=== PATIENT | female | born 1940 | race Caucasian/White ===

== ENCOUNTER → 2023-04-16 07:39 | Outpatient (REF) | payer OTHER, SELFPAY | LOC: RAD 07:39 | PROVIDERS: ATTENDING PHYSICIAN Internal Medicine | DX: G62.9 Polyneuropathy, unspecified (principal); E53.9 Vitamin B deficiency, unspecified; R20.0 Anesthesia of skin; Z91.81 History of falling; R26.89 Other abnormalities of gait and mobility; M48.061 Spinal stenosis, lumbar region without neurogenic claudication | CPT/HCPCS: 70450 ==

== ENCOUNTER → 2023-05-02 14:49 | Outpatient (REF) | payer OTHER, SELFPAY | LOC: PAVMRI 14:49 | PROVIDERS: ATTENDING PHYSICIAN Internal Medicine | DX: G62.9 Polyneuropathy, unspecified (principal); R26.89 Other abnormalities of gait and mobility; M48.061 Spinal stenosis, lumbar region without neurogenic claudication | CPT/HCPCS: 72148 ==

== ENCOUNTER → 2023-08-02 16:22 | Outpatient (REF) | payer OTHER, SELFPAY | LOC: RAD 16:22 | PROVIDERS: ATTENDING PHYSICIAN Internal Medicine | DX: R60.0 Localized edema (principal) | CPT/HCPCS: 93971 ==

== ENCOUNTER → 2023-08-26 06:41 | Outpatient (REF) | payer OTHER, SELFPAY | LOC: PAVMRI 06:41 | PROVIDERS: ATTENDING PHYSICIAN Pain Medicine Interventional Pain Medicine; FAMILY PHYSICIAN Internal Medicine | DX: M25.552 Pain in left hip (principal) | CPT/HCPCS: 73721 ==

== ENCOUNTER 2023-09-17 10:36 | Emergency (ER) | payer OTHER, SELFPAY ==
[2023-09-17] VITALS (8 sets, daily range): BP systolic 161–183; BP diastolic 65–85; PULSE 83; O2SAT 93; BMI 23.5
--- NOTE | 2023-09-17 10:52 | ED.GENMED ---
History of Present Illness
General
Chief Complaint: Back Pain
Source: patient
Exam Limitations: none
Time Seen by Provider: 09/17/23 10:42
History of Present Illness
History of Present Illness:
See MDM
Past History
Past History
ED Past Medical History: Asthma, HTN, Hypothyroidism and Other (Osteoarthritis)
ED Past Surgical History: Appendectomy and Cholecystectomy
Social History
Tobacco: Non-smoker
Alcohol: None
Drug: None
Living: alone
Employment: Retired
Family History
Family History: Diabetes
Phy Exam
Physical Exam
Physical Exam:
See MDM
Course
Orders/Labs/Results
Orders:
Orders
09/17/23 11:03
COVID-19 Antigen Urgent
Source: Nasal Swab
Complete Blood Count/With Diff Urgent
Comprehensive Metabolic Panel Urgent
09/17/23 12:00
Urinalysis Reflex To Culture Urgent
Date Specimen was Collected: 09/17/23
Time Specimen was Collected: 11:57
09/17/23 12:06
Case Management Consult ONCE
Case Management Consult: Discharge Planning
Physical Therapy Consult [Pt Eval And Treat] Urgent
Activity Level: Ambulate
Abnormal Lab Results
09/17/23 09/17/23
11:03 12:00
RBC 3.82 L 10^6/uL
(4.20-5.40)
Hgb 11.6 L g/dL
(12.0-16.0)
Hct 34.2 L %
(37.0-47.0)
RDW 14.6 H %
(11.5-14.5)
MPV 10.5 H fL
(7.4-10.4)
Absolute Lymphs (auto) 0.9 L 10^3/uL
(1.2-3.4)
Neutrophils % 81.0 H %
(42.2-75.2)
Lymphocytes % 11.7 L %
(20.5-51.1)
Glucose 102 H mg/dl
(70-99)
Total Bilirubin 1.7 H mg/dl
(0.2-1.3)
Urine Ketones 1+ A
(Negative)
09/17/23 11:03
09/17/23 11:03
Vital Signs
Initial and Last Documented VS:
Initial Vital Signs
Pulse Resp Pulse Ox
93 19 96
09/17/23 10:45 09/17/23 10:45 09/17/23 10:45
Last Documented Vital Signs
Temp Pulse Resp BP Pulse Ox
100 F 80 18 181/71 96
09/17/23 12:00 09/17/23 12:00 09/17/23 12:00 09/17/23 12:00 09/17/23 12:00
MDM/Problems Addressed
Differential Diagnosis Includes:
HPI and MDM Narrative:
82-year-old female presenting with back pain and left hip pain. Patient has been followed by spine was receiving injections in her hip and her spine. She states it is not helping and pain is getting worse despite the oxycodone being switched to
hydrocodone. On arrival, patient found to have low-grade fever. She denies urinary symptoms, cough or congestion. Will recheck temperature
On exam, she has no focal deficits in her legs
I did evaluate the MRI that she recently had which showed likely age degenerative changes such as labrum tear. She lives alone and is having trouble with her walkers. Will rule out any labral or infectious pathology as etiology of her weakness and
pain before having PT evaluate
Physical exam
General: Well appearing and non-toxic
HEENT: protecting airway
Neck: appears supple
CV: No evidence of cyanosis
Resp: No accessory muscle use
Abd: Non-distended. Soft and nontender
Extremities: No deformities. Distal legs neurovascular intact.. Muscle strength intact
Back: No rash or erythema noted to lumbar region
Neuro: alert
Psych: Normal affect
Skin: Intact
Problems Addressed including Acute and Chronic Conditions affecting care:
1. Back and hip pain
Acuity: Chronic
Prognosis: stable
Details: I did evaluate the MRI. This is likely a nonsurgical issue. Will have PT evaluate
Updates
PT and case management evaluated patient. Patient will be referred to [facility] and patient is very comfortable with plan. Patient is able to ambulate with assistance. Although patient has low-grade temperature, she is not
technically febrile and white blood cell count within normal limits. Abdomen remains soft and nontender and urine negative for infection. COVID-negative. Discussed return precautions
Differential Diagnosis (but not limited to): Back pain, hip strain, UTI
Testing considered:
Drug therapy (if applicable): OTC meds, please see d/c instruction regarding Rx drugs
Amount and/or Complexity of Data Reviewed
Clinical info obtained from: Patient
External data reviewed: Recent lumbar and hip MRI show degenerative changes
Labs I independently reviewed (but not limited to): White blood cell count normal
Radiology: N/A
Pulse Ox: not hypoxic
EKG independently reviewed: N/A
Photographic Intelligence Officer: N/A
Critical Care: N/A
Risk of Complication:
Social Determinants of health: Good social support
Discussed with other providers: N/A
Escalation of Care includes Admit/Obs: After being observed in the Emergency Department, pt stable for discharge.
Occasional wrong word or 'sound a like' substitutions may have occurred due to the inherent limitations of voice recognition software. Read the chart carefully and recognize, using context, where substitutions have occurred.
*Critical Care Note
Total Time (30-74mins, 75-104mins- exclusive of procedures): Not Applicable
ED Attending Note
-
Portions of this chart may have been created with voice recognition software.� Occasional wrong word or��sound alike� substitutions may have occurred due to the inherent limitations of voice recognition software.
Discharge Plan
Departure
Patient Disposition: Home (Routine Discharge)
Date of Disposition: 09/17/23
Time of Disposition: 14:02
Patient with high blood pressure during this ER visit?: Yes
Discharge Problem:
Back pain
Prescriptions:
No Action
prazosin 5 MG capsule
5 mg PO BID
mometasone-formoterol [Dulera] 1 PUFF HFA aerosol inhaler
2 puff inhalation DAILY
cholecalciferol (vitamin D3) [Vitamin D3] 1,000 UNIT capsule
2,000 unit PO BID
levothyroxine 100 MCG tablet
100 mcg PO DAILY
calcium carbonate 500 MG tablet
500 mg PO NOON
cyanocobalamin (vitamin B-12) 1,000 MCG tablet
5,000 mcg PO DAILY
potassium chloride [Klor-Con 10] 10 MEQ tablet extended release
20 meq PO TID
diltiazem HCl 120 MG capsule,extended release 24hr
120 mg PO DAILY
mupirocin 1 APPLIC ointment
1 applic intranasal BID Qty: 1 0RF
Patient Comments:
started treatment on saturday10/04/19 and was taking BID, last took 10/07/19 at 0530
sennosides [senna] 1 TABLET tablet
2 tab PO BID 0RF
acetaminophen 325 MG tablet
650 mg PO Q4HWA 0RF
tramadol 50 MG tablet
50 mg PO TID Qty: 21 0RF
Rx Instructions:
dx joint
ongoing therapy
magnesium hydroxide 30 ML suspension
30 ml PO DAILYPRN PRN (Reason: constipation) 0RF
docusate sodium 100 MG capsule
100 mg PO BID 0RF
hydromorphone 2 MG tablet
2 mg PO Q4HPRN PRN (Reason: modertae-severe pain) Qty: 35 0RF
Rx Instructions:
ongoing therapy
Dx TKA-joint
triamterene-hydrochlorothiazid 1 CAPSULE capsule
1 cap PO DAILY Qty: 0 0RF
Patient Comments:
dose: 27.5mg
Rx Instructions:
hold if systolic blood pressure <125
warfarin [Jantoven] 2 MG tablet
4 mg PO TONIGHT AT 1800 Qty: 50 0RF
Rx Instructions:
2 tabs tonight 10/07, then as advised after INR saturday
Referrals:
Gregg Funk MD [Family Provider] -
Activity Restrictions/Additional Instructions:
Please return for any worsening symptoms.
You may return at any time if you have further concerns.
Please follow up with your doctor at the first available appointment, preferably this week.
Thank you for choosing [facility].
Interventions
Interventions:
*Risk Screen - Suicide Last Done: 09/17/23 10:47
*General Assessment Last Done: 09/17/23 10:47
*Neglect/Abuse Screening Last Done: 09/17/23 10:47
*ED COVID-19 Vaccine History Last Done: 09/17/23 10:47
ED-Musculoskeletal Assessment Last Done: 09/17/23 12:21
Discharge Date and Time
Print Language: FRENCH
[2023-09-17 11:19] LABS: % Basophils 0.1 % (0-2); % Immature Granulocytes 0.4 % (0-0.5); % Lymphocytes 11.7 % (20.5-51.1); % Monocytes 6.8 % (1.7-9.3); Absolute Lymphocytes 0.9 10^3/uL (1.2-3.4); Absolute Monocytes 0.5 10^3/uL (0.1-0.6); Absolute Neutrophils 5.9 10^3/uL (1.4-6.5); Hematocrit 34.2 % (37.0-47.0); Hemoglobin 11.6 g/dL (12.0-16.0); Mean Corp Hgb Conc. 33.9 g/dL (33.0-37.0); Mean Corpuscular Hgb 30.4 pg (27.0-31.0); Mean Corpuscular Volume 89.5 fL (81.0-99.0); Mean Platelet Volume 10.5 fL (7.4-10.4); Nucleated Red Blood Cells % 0 %; Platelet Count 190 10^3/uL (130-400); Red Blood Cell Count 3.82 10^6/uL (4.20-5.40); Red Cell Dist. Width 14.6 % (11.5-14.5); White Blood Cell Count 7.3 10^3/uL (4.8-10.8)
[2023-09-17 11:26] LABS: ALT (SGPT) 12 U/L (0-35); AST (SGOT) 24 U/L (14-36); Alkaline Phosphatase 66 U/L (38-126); Blood Urea Nitrogen 14 mg/dl (7-17); Calcium 9.6 mg/dl (8.4-10.2); Carbon Dioxide 29 mmol/L (22-30); Chloride 100 mmol/L (98-107); Estimated Creatinine Clearance 69 ml/min; Glucose 102 mg/dl (70-99); Potassium 3.5 mmol/L (3.5-5.1); Sodium 136 mmol/L (135-145); Total Bilirubin 1.7 mg/dl (0.2-1.3); Total Protein 6.7 g/dl (6.3-8.2); eGFR > 60.00
[2023-09-17 11:30] LABS: COVID-19 Antigen Negative (Negative)
[2023-09-17 12:21] LABS: Urine Albumin Negative (Neg - Trace); Urine Bilirubin Negative (Negative); Urine Character Clear (Clear); Urine Color Yellow; Urine Glucose Negative (Negative); Urine Ketone 1+ (Negative); Urine Leukocyte Negative (Negative); Urine Nitrite Negative (Negative); Urine Occult Blood Negative (Negative); Urine Urobilinogen Negative (Neg - 1+)
--- NOTE | 2023-09-17 13:49 | CM ---
Addendum entered by Gracy Mccormack 09/17/23 14:16:
[facility] accepted referral. Patient was in agreement with having [facility] as her home health care agency.
Original Note:
CM reviewed chart. CM introduced self and role to patient. CM discussed PT's recommendations. She would like to go home with PT/OT/SN.
Referrals placed in [facility]. Covering bedside RN and attending physician notified of above.
Patient confirmed one of her tenants will provide transportation once she is discharged. She is calling them now.
--- NOTE | 2023-09-17 14:28 | VNURNOTE ---
Received [facility] request from VIVIENNE Dubose. Chart reviewed. Home Health Liaison met with patient at bedside to discuss [facility] nurse/therapy, visits, schedule and homebound status. Patient is agreeable and understands that visits at home will be 1-2 x per
week to assess and teach medical management. [facility] brochure provided with contact information. Patient is aware that [facility] will contact them for start of care in a few days after discharge from . [facility] referral completed in [facility] by VIVIENNE.
== END 2023-09-17 14:45 | disposition home or self-care (01) ==
LOC: EMR 10:36
PROVIDERS: EMERGENCY PHYSICIAN Student in an Organized Health Care Education/Training Program; FAMILY PHYSICIAN Internal Medicine
DX: M54.9 Dorsalgia, unspecified (principal); I10 Essential (primary) hypertension
CPT/HCPCS: 99283; 80053; 81003; 85025; 87811

== ENCOUNTER 2024-01-14 11:52 | Outpatient (RCR) | payer OTHER, SELFPAY | END 2024-01-14 23:59 | disposition home or self-care (01) | LOC: RPT 11:52 | PROVIDERS: ATTENDING PHYSICIAN Physician Assistant Surgical; FAMILY PHYSICIAN Internal Medicine | DX: M48.062 Spinal stenosis, lumbar region with neurogenic claudication (principal); M43.16 Spondylolisthesis, lumbar region; Z73.6 Limitation of activities due to disability | CPT/HCPCS: 97010; 97110; 97162 ==

== ENCOUNTER 2024-02-25 09:54 | Outpatient (RCR) | payer OTHER, SELFPAY | END 2024-02-25 23:59 | disposition home or self-care (01) | LOC: RPT 09:54 | PROVIDERS: ATTENDING PHYSICIAN Physician Assistant Surgical; FAMILY PHYSICIAN Internal Medicine | DX: M48.062 Spinal stenosis, lumbar region with neurogenic claudication (principal); M43.16 Spondylolisthesis, lumbar region; Z73.6 Limitation of activities due to disability | CPT/HCPCS: 97010; 97110 ==

== ENCOUNTER 2024-03-26 09:57 | Outpatient (RCR) | payer OTHER, SELFPAY | END 2024-03-26 23:59 | disposition home or self-care (01) | LOC: RPT 09:57 | PROVIDERS: ATTENDING PHYSICIAN Physician Assistant Surgical; FAMILY PHYSICIAN Internal Medicine | DX: M48.062 Spinal stenosis, lumbar region with neurogenic claudication (principal); M43.16 Spondylolisthesis, lumbar region; Z73.6 Limitation of activities due to disability | CPT/HCPCS: 97010; 97110 ==

== ENCOUNTER 2024-04-23 12:58 | Outpatient (RCR) | payer OTHER, SELFPAY | END 2024-04-23 23:59 | disposition home or self-care (01) | LOC: RPT 12:58 | PROVIDERS: ATTENDING PHYSICIAN Physician Assistant Surgical; FAMILY PHYSICIAN Internal Medicine | DX: M48.062 Spinal stenosis, lumbar region with neurogenic claudication (principal); M43.16 Spondylolisthesis, lumbar region; Z73.6 Limitation of activities due to disability | CPT/HCPCS: 97010; 97110 ==

== ENCOUNTER 2024-05-21 12:50 | Outpatient (RCR) | payer OTHER, SELFPAY | END 2024-05-21 23:59 | disposition home or self-care (01) | LOC: RPT 12:50 | PROVIDERS: ATTENDING PHYSICIAN Physician Assistant Surgical; FAMILY PHYSICIAN Internal Medicine | DX: M48.062 Spinal stenosis, lumbar region with neurogenic claudication (principal); M43.16 Spondylolisthesis, lumbar region; Z73.6 Limitation of activities due to disability; M62.81 Muscle weakness (generalized); R26.2 Difficulty in walking, not elsewhere classified; R26.89 Other abnormalities of gait and mobility | CPT/HCPCS: 97010; 97110 ==

== ENCOUNTER 2024-06-07 23:43 | Emergency (ER) | payer OTHER, SELFPAY ==
[2024-06-07 23:56] VITALS: BP 220/91
--- NOTE | 2024-06-08 00:12 | ED.GENMED ---
History of Present Illness
General
Chief Complaint: Fall
Source: patient
Exam Limitations: none
Time Seen by Provider: 06/08/24 00:08
Nursing documentation reviewed up to this point in time: agreed with
History of Present Illness
History of Present Illness:
This is a 83-year-old female with a past medical history of hypertension, asthma, hypothyroidism, presents to the emergency department today with concerns of right knee pain following a fall. Patient reports that she lives alone and usually
ambulates well with a walker and a cane. Patient states that she was ambulating without her walker at home because she states that she knows her home well and did not feel that the walker was necessary at that time but states that she always use an
assistive device when leaving her home. Patient reports that she was sitting watching TV when she went to go stand up and fell onto her right side, injuring her right knee and her right ankle. She was unable to get up on her own and so she
notified her tenants who came to help her and called 911. Patient did not take anything for pain. Patient did not try ambulating since the fall. She denies any dizziness prior to the fall, any loss of consciousness, any syncope. She did not hit
her head when she fell, she denies any neck pain. Patient states that her bedroom is located on the first floor and she does not have to climb stairs at home.
Past History
Past History
ED Past Medical History: Asthma, HTN, Hypothyroidism and Other (Osteoarthritis)
ED Past Surgical History: Appendectomy and Cholecystectomy
Social History
Tobacco: Non-smoker
Alcohol: None
Drug: None
Living: alone
Employment: Retired
Family History
Family History: Diabetes
Review of Systems
Review of Systems
All Other Systems: ROS reviewed and negative except as documented in HPI and ROS
Phy Exam
Physical Exam
Physical Exam:
General: Patient is well appearing and in no acute distress; non-toxic
Skin: Warm and dry, scattered ecchymosis noted to right knee
Head: Normocephalic, atraumatic
Eyes: Sclera non-icteric. EOMs intact.
Cardiac: Regular rate and rhythm, no murmurs
Peripheral Vascular: No lower extremity swelling or edema
Pulm: Normal respiratory effort
Musculoskeletal: Full range of motion of right lower extremity, no pain with internal/external rotation of the right hip, no palpable tenderness palpation. No pain with flexion extension of the right knee, no suprapatellar effusion. Right ankle
joint stable with negative anterior drawer test, some tenderness with varus stress.
Neuro: CN II-XII intact, no focal neurologic deficits.
Psychiatric: Appropriate mood and affect.
Course
Orders/Labs/Results
Orders:
Orders
06/07/24 23:54
ECG [Electrocardiogram (*1)] Urgent
Reason for Study: Hypertension, Benign
Cardiology Consult: Anselmo Hagen
06/08/24 00:31
Oxycodone/Acetaminophen [Percocet 5/325] 1 tablet PO NOW STA
06/08/24 00:32
CR Ankle - Right 2 Views Urgent
Comment:
Reason For Exam: right lateral ankle pain
CR Knee - Right 1 Or 2 Views Urgent
Comment:
Reason For Exam: right knee pain
CR Sacrum/coccyx Min 2 View Urgent
Comment:
Reason For Exam: coccyx pain
06/08/24 00:33
CT Head W/o Iv Contrast Urgent
Comment:
Reason For Exam: mechanical fall
06/07/24 23:56
06/07/24 23:56
Vital Signs
Blood pressure: 179/97
Initial and Last Documented VS:
Initial Vital Signs
Temp Pulse Resp BP Pulse Ox
98.7 F 77 20 220/91 98
06/07/24 23:56 06/07/24 23:56 06/07/24 23:56 06/07/24 23:56 06/07/24 23:56
Last Documented Vital Signs
Temp Pulse Resp BP Pulse Ox
98.7 F 70 20 160/80 98
06/07/24 23:56 06/08/24 03:45 06/08/24 03:45 06/08/24 03:45 06/08/24 05:22
MDM/Problems Addressed
Differential Diagnosis Includes:
Knee contusion, subdural hematoma, epidural hematoma, coccygeal fracture, tibial plateau fracture
MDM/Problems Addressed:
This is a 83-year-old female with a past medical history of hypertension, asthma, hypothyroidism, presents to the emergency department today with concerns of right knee pain following a fall. History as above. Fall purely mechanical in nature, she
did not have dizziness or presyncopal event. Patient was given 1 Percocet tablet for her pain which did improve her symptoms. Her x-rays are negative for acute fracture or dislocation. Her CAT scan of the head does not show any acute bleeding.
Patient demonstrated her ability ambulate with a steady gait with her walker in the hallways of the emergency department. She is able to ambulate without pain. Stable and safe for discharge home. She will call her friend to pick her up. Patient
was acutely hypertensive upon arrival to emergency department however her blood pressure did come down with pain management. She does take Dr. Rose not 1 that I prazosin for her blood pressure twice daily. Advised patient to take a log of her
blood pressure at home and check it once daily in the morning and follow-up with primary care fighter. Patient expressed understanding. Patient stable for discharge
Chronic conditions affecting care:
Hypertension, asthma, diverticulitis
*Pulse Oximetry
Patient hypoxic: no
*Critical Care Note
Total Time (30-74mins, 75-104mins- exclusive of procedures): Not Applicable
Data Reviewed
Review of Other/Old Records Reveals: Records (Reviewed ER physician documentation from 09/17/2023 patient seen for back pain with recent MRI, pain control, patient was stable for discharge charge; reviewed discharge summary from 08/27/2019, patient
seen for severe osteoarthritis and had pain management was discharged)
ED Attending Note
-
Portions of this chart may have been created with voice recognition software.� Occasional wrong word or��sound alike� substitutions may have occurred due to the inherent limitations of voice recognition software.
Discharge Plan
Departure
Patient Disposition: Home (Routine Discharge)
Date of Disposition: 06/08/24
Time of Disposition: 03:20
Patient with high blood pressure during this ER visit?: Yes
Condition: Good
Discharge Problem:
Fall from slipping
Instructions: Preventing falls in adults, BLOOD PRESSURE
Prescriptions:
No Action
prazosin 5 MG capsule
5 mg PO BID
Dulera 1 PUFF HFA aerosol inhaler
2 puff inhalation DAILY
cholecalciferol (vitamin D3) [Vitamin D3] 1,000 UNIT capsule
2,000 unit PO ONCE
levothyroxine 100 MCG tablet
100 mcg PO DAILY
calcium carbonate 500 MG tablet
500 mg PO NOON
cyanocobalamin (vitamin B-12) 1,000 MCG tablet
5,000 mcg PO DAILY
potassium chloride [Klor-Con 10] 10 MEQ tablet extended release
20 meq PO TID
Referrals:
UNKNOWN - PT NOT,[facility] [Family Provider] -
Activity Restrictions/Additional Instructions:
Your x-rays do not show any evidence of fracture. Your CT scan of the head is normal.
Please continue to take your blood pressure medications. Please check your blood pressure once daily in the morning keep a log of your blood pressures and please call your primary care provider to schedule follow-up appointment.
PLEASE RETURN EMERGENCY DEPARTMENT SHOULD YOU DEVELOP CHEST PAIN, SHORTNESS OF BREATH, HEADACHE, WEAKNESS ONE-SIDED VIRUS OTHER, DIFFICULTY AMBULATING, FAINTING SPELLS, LIGHTHEADEDNESS, OR ANY OTHER SIGNS OR SYMPTOMS WORRISOME TO YOU.
Interventions
Interventions:
*Risk Screen - Suicide Last Done: 06/07/24 23:56
*General Assessment Last Done: 06/07/24 23:56
*Neglect/Abuse Screening Last Done: 06/07/24 23:56
*ED- Fall Risk Assessment Last Done: 06/07/24 23:56
*ED COVID-19 Vaccine History Last Done: 06/07/24 23:56
*Nursing Disposition Last Done: 06/08/24 05:22
ED- Cardiac Assessment Last Done: 06/08/24 00:26
ED-Musculoskeletal Assessment Last Done: 06/08/24 00:26
ED- Neurological Assessment Last Done: 06/08/24 00:26
ED- Pulmonary Assessment Last Done: 06/08/24 00:26
ED-Skin Assessment Last Done: 06/08/24 00:26
Discharge Date and Time
Discharge Date/Time: 06/08/24 05:23
Print Language: UGANDAN
[2024-06-08] MEDS: PERCOCET 5/325 1 TABLET PO (00:37)
[2024-06-08 03:45] VITALS: BP 160/80
--- NOTE | 2024-06-08 14:07 | CM ---
Post dc call from friend/Keturah Chew [phone] from [place]
Requesting CM set up emergency response for pt
He called the PCP today who deferred to CM department
Call with pt- provided on [facility] info and contact number
Also sent copy of emergency response provider list in the mail per her request
== END 2024-06-08 05:23 | disposition home or self-care (01) ==
LOC: EMR 23:43
PROVIDERS: EMERGENCY PHYSICIAN Emergency Medicine
DX: M25.561 Pain in right knee (principal); W01.0XXA Fall on same level from slipping, tripping and stumbling without subsequent striking against object, initial encounter; E03.9 Hypothyroidism, unspecified; I10 Essential (primary) hypertension; Z90.49 Acquired absence of other specified parts of digestive tract; Z60.2 Problems related to living alone
CPT/HCPCS: 99284; 70450; 72220; 73560; 73600; 93005

== ENCOUNTER 2024-06-23 11:53 | Outpatient (RCR) | payer OTHER, SELFPAY | END 2024-06-23 23:59 | disposition home or self-care (01) | LOC: RPT 11:53 | PROVIDERS: ATTENDING PHYSICIAN Physician Assistant Surgical; FAMILY PHYSICIAN Internal Medicine | DX: M48.062 Spinal stenosis, lumbar region with neurogenic claudication (principal); M43.16 Spondylolisthesis, lumbar region; M62.81 Muscle weakness (generalized); Z73.6 Limitation of activities due to disability; R26.2 Difficulty in walking, not elsewhere classified; R26.89 Other abnormalities of gait and mobility | CPT/HCPCS: 97010; 97110 ==

== ENCOUNTER → 2024-07-16 15:59 | Outpatient (REF) | payer OTHER, SELFPAY | LOC: RCS 15:59 | PROVIDERS: ATTENDING PHYSICIAN Physician Assistant; FAMILY PHYSICIAN Internal Medicine | DX: I10 Essential (primary) hypertension (principal); I35.1 Nonrheumatic aortic (valve) insufficiency | CPT/HCPCS: 93306 ==

== ENCOUNTER 2024-07-23 12:53 | Outpatient (RCR) | payer OTHER, SELFPAY | END 2024-07-23 23:59 | disposition home or self-care (01) | LOC: RPT 12:53 | PROVIDERS: ATTENDING PHYSICIAN Physician Assistant Surgical; FAMILY PHYSICIAN Internal Medicine | DX: M48.062 Spinal stenosis, lumbar region with neurogenic claudication (principal); M43.16 Spondylolisthesis, lumbar region; Z73.6 Limitation of activities due to disability; M62.81 Muscle weakness (generalized); R26.2 Difficulty in walking, not elsewhere classified; R26.89 Other abnormalities of gait and mobility | CPT/HCPCS: 97010; 97110 ==

== ENCOUNTER 2024-08-04 12:00 | Outpatient (RCR) | payer OTHER, SELFPAY | END 2024-08-05 14:17 | disposition home or self-care (01) | LOC: RPT 12:00 | PROVIDERS: ATTENDING PHYSICIAN Physician Assistant Surgical; FAMILY PHYSICIAN Internal Medicine | DX: M48.062 Spinal stenosis, lumbar region with neurogenic claudication (principal); M43.16 Spondylolisthesis, lumbar region; Z73.6 Limitation of activities due to disability; M62.81 Muscle weakness (generalized); R26.2 Difficulty in walking, not elsewhere classified; R26.89 Other abnormalities of gait and mobility | CPT/HCPCS: 97010; 97110 ==

== ENCOUNTER → 2024-10-06 13:06 | Outpatient (REF) | payer OTHER, SELFPAY | LOC: RAD 13:06 | PROVIDERS: ATTENDING PHYSICIAN Podiatrist; FAMILY PHYSICIAN Internal Medicine | DX: M79.669 Pain in unspecified lower leg (principal) | CPT/HCPCS: 93971 ==

== ENCOUNTER 2025-02-03 15:42 | Emergency (ER) | payer OTHER, SELFPAY ==
[2025-02-03 15:53] VITALS: BP 130/59
[2025-02-03 16:15] LABS: Hematocrit 29.8 % (37.0-47.0); Hemoglobin 9.8 g/dL (12.0-16.0); Mean Corp Hgb Conc. 32.9 g/dL (33.0-37.0); Mean Corpuscular Volume 91.7 fL (81.0-99.0); Nucleated Red Blood Cells % 0 %; Platelet Count 155 10^3/uL (130-400); Red Cell Dist. Width 14.2 % (11.5-14.5)
[2025-02-03 16:38] LABS: ALT (SGPT) 12 U/L (0-35); AST (SGOT) 31 U/L (14-36); Albumin 4.0 g/dl (3.5-5.0); Alkaline Phosphatase 60 U/L (38-126); Blood Urea Nitrogen 25 mg/dl (7-17); Calcium 8.9 mg/dl (8.4-10.2); Carbon Dioxide 23 mmol/L (22-30); Chloride 105 mmol/L (98-107); Glucose 96 mg/dl (70-99); Potassium 3.7 mmol/L (3.5-5.1); Sodium 135 mmol/L (135-145); Total Protein 7.0 g/dl (6.3-8.2); eGFR 49.86
[2025-02-03 16:51] LABS: COVID-19 Antigen Negative (Negative)
--- NOTE | 2025-02-03 19:38 | ED.GENMED ---
History of Present Illness
General
Chief Complaint: Extremity Pain (non-traumatic)
Time Seen by Provider: 02/03/25 19:38
History of Present Illness
History of Present Illness:
FOCUSED PAST MEDICAL HISTORY
- High blood pressure, diverticular disease, hypothyroidism
REVIEW OF OLD RECORDS
- I reviewed records, the patient was getting physical therapy this past summer related to spinal stenosis
Note:
CHIEF COMPLAINT(S)
Shooting pains in both legs.
HISTORY OF PRESENT ILLNESS
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 She presents with severe shooting pains in both legs that began abruptly last night while going to bed. The pain persisted throughout the night,
preventing her from sleeping, and was not relieved by repositioning. The patient reports inability to walk upon waking this morning and describes the pain as intense, particularly affecting her ability to perform activities. She normally uses a
walker due to her neuropathy. There is a history of physical therapy for spinal stenosis in the past, which did not provide expected relief. This episode is significantly worse than her usual condition, and the pain is localized primarily around the
groin area.
The patient has been evaluated by a biomedical equipment specialist in the past and received an injection that resulted in temporary paralysis. She does not currently see pain management and has not been recommended for surgery. She arrived via ambulance due to
her inability to descend stairs at home. Despite experiencing significant pain, she does not wish to take narcotic pain medication at this time. A computed tomography (CT) scan of the abdomen and pelvis has been ordered to assess underlying causes
further, focusing on potential progression of spinal stenosis.
PAST MEDICAL AND SURGICAL HISTORY
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
- Bilateral knee replacements.
- Irritable bowel syndrome (IBS).
SOCIAL HISTORY
The patient lives alone and uses a walker and stair lift at home for mobility.
REVIEW OF SYSTEMS
- Musculoskeletal: Severe shooting pains in legs, primarily in the groin area, with decreased ability to ambulate.
- Gastrointestinal: History of irritable bowel syndrome, no current abdominal pain noted.
PHYSICAL EXAM
General: Alert, no acute distress when not moving.
Skin: Warm, dry.
Head: Normocephalic, atraumatic.
Neck: Supple, trachea midline.
Eye Ears, nose, mouth and throat: Oral mucosa moist.
Cardiovascular: Normal peripheral perfusion, no edema.
Respiratory: Respirations are non-labored.
Gastrointestinal: Abdomen nondistended, no significant tenderness, however there is some tenderness to palpation in both inguinal regions
Back: No midline lumbar spine tenderness. Decreased active range of motion due to pain
Musculoskeletal: Good distal pulses bilaterally, decreased active range of motion and flexion at both hips, mild bilateral inguinal tenderness.
Neurological: Good strength noted in L5 and S1 distribution bilaterally.
Psychiatric: Cooperative, appropriate mood & affect.
PLAN
- Order a CT scan of the abdomen and pelvis with IV contrast to evaluate possible progression of spinal stenosis or other underlying causes for the leg pain.
- Monitor the patient�s response to pain and mobility interventions.
- Re-evaluate post-imaging to determine further management and the necessity of hospitalization given her inability to ambulate independently.
DIFFERENTIAL DIAGNOSIS
The Differential Diagnosis includes, in no particular order and is not limited to:
1. Progression of spinal stenosis
2. Peripheral neuropathy exacerbation
3. Musculoskeletal pain
4. Osteoarthritis
5. Inguinal hernia
6. Deep vein thrombosis
7. Vascular insufficiency
8. Radiculopathy
9. Myopathy
10. Bursitis
RADIOLOGY
- CT shows new L1 compression with 80% loss of height and retropulsion which was not present on the MRI from 2023
LABS
- White count 6.0, hemoglobin 9.8 which is lower than the hemoglobin of 11.6 in August 2023, creatinine 1.1
SUMMARY OF ENCOUNTER
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 On examination, there was decreased
active range of motion of both hips and weakness noted in the lower extremities, particularly on the right side, with severe pain radiating down the front of her right lower extremity. A CT scan was ordered due to the worsening condition to evaluate
potential progression of the spinal stenosis or other underlying causes. Upon radiographic assessment, an L1 compression fracture with retropulsion was identified, prompting a consultation with the neurosurgery service.
DISPOSITION
Transfer to [facility] for further evaluation and potential surgical intervention as recommended by the consulting neurosurgeon.
MANAGEMENT OF THE PATIENTS CARE WAS DISCUSSED WITH
Dr. Mariano, communications programmer for neurosurgery, who recommended the patient be transferred to [facility] for further evaluation and potential surgical intervention.
PLAN
Transfer the patient to [facility] for neurosurgical evaluation and possible surgical management for L1 compression fracture with retropulsion.
INDEPENDENT REVIEW OF LABS AND INTERPRETATION OF TESTS
My independent interpretation of a CT scan of the lumbar spine indicated an L1 compression fracture with retropulsion contributing to the patients symptoms.
MEDICAL DECISION MAKING
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 Differential diagnosis includes progression of spinal stenosis, peripheral neuropathy exacerbation, and
musculoskeletal pain.
-Data:
Category 1
My independent interpretation of the CT scan suggested an L1 compression fracture with retropulsion.
Category 3
Discussion of management with Dr. Mariano, communications programmer for neurosurgery, regarding the necessity of transfer and potential surgical intervention for the L1 compression fracture.
DIAGNOSIS
1. L1 compression fracture with retropulsion (S32.010A)
2. 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
UPDATE
- Lives at home
- Cannot walk
- Good strength on stretcher L5/S1, but markedly decreased strength into flexion at both hips
- Strong DP pulses
- As I got the patient up from a the stretcher she required significant assistance and could not bear weight or even take 1 step even with my assistance
- I discussed case with Dr. Mariano on-call for neurosurgery who accepts to medicine service at [facility]
Past History
Past History
ED Past Medical History: Asthma, HTN, Hypothyroidism and Other (Osteoarthritis)
ED Past Surgical History: Appendectomy and Cholecystectomy
Social History
Tobacco: Non-smoker
Alcohol: None
Drug: None
Living: alone
Employment: Retired
Family History
Family History: Diabetes
Phy Exam
Physical Exam
Physical Exam:
See HPI
Course
Orders/Labs/Results
Orders:
Orders
02/03/25 16:02
COVID-19 Antigen Urgent
Source: Nasal Swab
Complete Blood Count/With Diff Urgent
Comprehensive Metabolic Panel Urgent
INF RAPID [Influenza A+B Rapid Molecular] Urgent
ARNOLDO Source: Nasal Swab
Specimen Description:
02/03/25 19:47
CT Abd/pelvis W Iv Cont Urgent
Comment:
Reason For Exam: b/l groin pain; low back pain; cannot walk
0.9% Sodium Chloride 500 ml [Nss] 500 ml IV BOLUS
Abnormal Lab Results
02/03/25
16:02
RBC 3.25 L 10^6/uL
(4.20-5.40)
Hgb 9.8 L g/dL
(12.0-16.0)
Hct 29.8 L %
(37.0-47.0)
MCHC 32.9 L g/dL
(33.0-37.0)
Absolute Lymphs (auto) 1.0 L 10^3/uL
(1.2-3.4)
Lymphocytes % 16.2 L %
(20.5-51.1)
Monocytes % 10.4 H %
(1.7-9.3)
BUN 25 H mg/dl
(7-17)
Creatinine 1.1 H mg/dL
(0.6-1.0)
02/03/25 16:02
02/03/25 16:02
Vital Signs
Initial and Last Documented VS:
Initial Vital Signs
Temp Pulse Resp BP Pulse Ox
37.7 C 71 18 130/59 95
02/03/25 15:53 02/03/25 15:53 02/03/25 15:53 02/03/25 15:53 02/03/25 15:53
Last Documented Vital Signs
Temp Pulse Resp BP Pulse Ox
37.7 C 66 15 149/60 96
02/03/25 15:53 02/03/25 19:47 02/03/25 19:47 02/03/25 19:47 02/03/25 19:47
*Pulse Oximetry
SaO2: 95
Oxygen Mode of Delivery: Room air
Patient hypoxic: no
*Critical Care Note
Total Time (30-74mins, 75-104mins- exclusive of procedures): Not Applicable
ED Attending Note
-
Portions of this chart may have been created with voice recognition software.� Occasional wrong word or��sound alike� substitutions may have occurred due to the inherent limitations of voice recognition software.
Discharge Plan
Departure
Patient Disposition: Acute Care Hospital
Date of Disposition: 02/03/25
Time of Disposition: 21:47
Discharge Problem:
Nontraumatic compression fracture of L1 vertebra
Prescriptions:
No Action
prazosin 5 MG capsule
5 mg PO BID
Dulera 1 PUFF HFA aerosol inhaler
2 puff inhalation DAILY
cholecalciferol (vitamin D3) [Vitamin D3] 1,000 UNIT capsule
2,000 unit PO ONCE
levothyroxine 100 MCG tablet
100 mcg PO DAILY
calcium carbonate 500 MG tablet
500 mg PO NOON
cyanocobalamin (vitamin B-12) 1,000 MCG tablet
5,000 mcg PO DAILY
potassium chloride [Klor-Con 10] 10 MEQ tablet extended release
20 meq PO TID
Referrals:
Gregg Funk MD [Family Provider, Internal Medicine]
Hospital Transfer
Other hospital: [facility]
I certify that the patient requires transfer: Yes
Discussed case with accepting physician: Dr. Mariano; will also speak to IM
Reason for transfer: higher level of care, availability of service and specialties available
Interventions
Interventions:
*Risk Screen - Suicide Last Done: 02/03/25 15:53
*General Assessment Last Done: 02/03/25 19:52
*ED COVID-19 Vaccine History Last Done: 02/03/25 19:52
*ED Influenza Vaccine History Last Done: 02/03/25 15:53
[facility] Fall Risk Assessment Tool Last Done: 02/03/25 19:46
ED-Musculoskeletal Assessment Last Done: 02/03/25 19:39
ED-Peripheral Vascular Assessment Last Done: 02/03/25 19:40
ED-Skin Assessment Last Done: 02/03/25 19:40
Discharge Date and Time
Print Language: GERMAN
[2025-02-03 19:46] VITALS: BMI 23.2
[2025-02-03 19:47] VITALS: BP 149/60
[2025-02-03] MEDS: NSS 500 IV (19:55)
[2025-02-03 22:13] VITALS: BP 147/66
[2025-02-03 23:42] VITALS: BP 147/66
== END 2025-02-03 23:44 | disposition short-term general hospital (02) ==
LOC: EMR 15:42
PROVIDERS: Student in an Organized Health Care Education/Training Program; EMERGENCY PHYSICIAN Emergency Medicine; FAMILY PHYSICIAN Internal Medicine
DX: M48.56XA Collapsed vertebra, not elsewhere classified, lumbar region, initial encounter for fracture (principal); M79.605 Pain in left leg; M79.604 Pain in right leg; E03.9 Hypothyroidism, unspecified; G62.9 Polyneuropathy, unspecified; I10 Essential (primary) hypertension; J45.909 Unspecified asthma, uncomplicated; Z90.49 Acquired absence of other specified parts of digestive tract; Z11.52 Encounter for screening for COVID-19
CPT/HCPCS: 96360; 96361; 99284; 74177; 80053; 85025; 87502; 87811; Q9967